=== PATIENT | female | born 1970 | race Caucasian/White ===

== ENCOUNTER 2022-11-17 11:24 | Emergency (ER) | payer BC | END 2022-11-17 12:50 | disposition home or self-care (01) | LOC: LB.ED 11:24 | DX: S92.355A Nondisplaced fracture of fifth metatarsal bone, left foot, initial encounter for closed fracture (principal); X50.1XXA Overexertion from prolonged static or awkward postures, initial encounter; Y93.01 Activity, walking, marching and hiking | CPT/HCPCS: 29515; 73610-LT; 73630-LT; 99282; 99283 ==